=== PATIENT | female | born 1990 | race Asian ===

== ENCOUNTER → 2025-05-24 | Outpatient (CLI) | payer OTHER, SELFPAY ==
[2025-05-24 08:51] LABS: Quantiferon-TB* See Sep Rpt
== END | disposition home or self-care (01) ==
LOC: SLAB 08:43
PROVIDERS: PCP Internal Medicine; Referring Provider Internal Medicine; Visit Provider Internal Medicine
DX: Z11.1 Encounter for screening for respiratory tuberculosis (principal)
CPT/HCPCS: 86480